=== PATIENT | male | born 1990 | race African-American/Black ===

== ENCOUNTER 2018-07-09 18:15 | Emergency (ER) | payer MEDICARE ==
[~2018-07-09] VITALS: Ht 177.8 cm; Wt 64.0 kg
[2018-07-09 18:27] VITALS: BP 120/75
== END 2018-07-09 21:28 | disposition left against medical advice (07) ==
LOC: ER 21:18
DX: N48.89 Other specified disorders of penis (principal); Z53.21 Procedure and treatment not carried out due to patient leaving prior to being seen by health care provider

== ENCOUNTER 2018-07-10 03:40 | Emergency (ER) | payer MEDICARE ==
[~2018-07-10] VITALS: Ht 175.3 cm; Wt 64.0 kg
[2018-07-10 07:35] VITALS: BP 95/65
== END 2018-07-10 07:53 | disposition home or self-care (01) ==
LOC: ER 03:40
DX: Z20.2 Contact with and (suspected) exposure to infections with a predominantly sexual mode of transmission (principal); F17.210 Nicotine dependence, cigarettes, uncomplicated
CPT/HCPCS: 99283

== ENCOUNTER 2018-07-11 13:18 | Emergency (ER) | payer MEDICARE ==
[~2018-07-11] VITALS: Ht 170.2 cm; Wt 65.0 kg
[2018-07-11 13:29] VITALS: BP 118/83
== END 2018-07-11 18:25 | disposition left against medical advice (07) ==
LOC: ER 13:18
DX: Z59.0 Homelessness (principal); F17.200 Nicotine dependence, unspecified, uncomplicated
CPT/HCPCS: 99283

== ENCOUNTER 2018-07-12 20:30 | Emergency (ER) | payer MEDICARE ==
[~2018-07-12] VITALS: Ht 175.3 cm; Wt 63.6 kg
[2018-07-12 22:04] LABS: BASOPHILS % 0.9 % (0.0-2.0); EOSINOPHILS % 3.6 % (0.0-5.0); HEMATOCRIT. 44.9 % (42.0-52.0); HEMOGLOBIN. 14.5 g/dL (14.0-18.0); LYMPHOCYTES % 28.2 % (20.0-50.0); MEAN CORPUSCULAR HEMOGLOBIN 27.3 pg (28.0-32.0); MEAN CORPUSCULAR VOLUME 84.3 fL (80.0-94.0); MONOCYTES % 9.2 % (2.0-8.0); NEUTROPHILS % 58.1 % (40.0-76.0); PLATELET 171 x1000/uL (130-400); RED BLOOD CELL COUNT 5.32 mill/uL (4.7-6.1); RED CELL DISTRIBUTION WIDTH 14.4 % (11.6-14.6)
[2018-07-12 22:08] LABS: CHLORIDE 109 mEq/L (98-107)
[2018-07-12 22:11] LABS: CLARITY URINE CLEAR (CLEAR); COLOR URINE YELLOW (YELLOW); KETONES URINE TRACE (NEGATIVE); LEUKOCYTE ESTERASE URINE NEGATIVE (NEGATIVE); NITRITE URINE NEGATIVE (NEGATIVE); OCCULT BLOOD URINE NEGATIVE (NEGATIVE); PH URINE 5.5 (4.5-8.0); PROTEIN URINE NEGATIVE (NEGATIVE); SPECIFIC GRAVITY URINE 1.022 (1.005-1.030); UROBILINOGEN URINE 0.2 E.U./dL (0.2-1.0)
[2018-07-12 22:13] LABS: ETHANOL BLOOD < 10 mg/dL
[2018-07-12 22:22] LABS: METHADONE URINE SCREEN NEGATIVE (NEGATIVE); OPIATES URINE SCREEN NEGATIVE (NEGATIVE)
[2018-07-12 22:23] LABS: *AMPHETAMINES SCREEN URINE NEGATIVE (NEGATIVE); *BARBITURATES SCREEN URINE NEGATIVE (NEGATIVE); *BENZODIAZEPINES SCREEN URINE NEGATIVE (NEGATIVE); *COCAINE SCREEN URINE NEGATIVE (NEGATIVE); CANNABINOID URINE SCREEN PRESUMTIVE POSITIVE (NEGATIVE); PHENCYCLIDINE URINE SCREEN NEGATIVE (NEGATIVE)
[2018-07-13 18:58] VITALS: BP 108/72
== END 2018-07-13 19:31 | disposition home or self-care (01) ==
LOC: ER 20:30
DX: R45.851 Suicidal ideations (principal); F20.9 Schizophrenia, unspecified; F17.200 Nicotine dependence, unspecified, uncomplicated
CPT/HCPCS: 36415; 80305; 80307; 80320; 80329; 84443; 99284; G0480

== ENCOUNTER 2018-07-14 18:54 | Emergency (ER) | payer MEDICARE ==
[~2018-07-14] VITALS: Ht 175.3 cm; Wt 63.0 kg
[2018-07-14 20:44] VITALS: BP 106/62
== END 2018-07-14 20:53 | disposition home or self-care (01) ==
LOC: ER 18:54
DX: F43.20 Adjustment disorder, unspecified (principal); F32.9 Major depressive disorder, single episode, unspecified; F20.9 Schizophrenia, unspecified; F17.210 Nicotine dependence, cigarettes, uncomplicated; Z71.6 Tobacco abuse counseling
CPT/HCPCS: 99281; 99284; 99406

== ENCOUNTER 2018-07-15 08:20 | Emergency (ER) | payer MEDICARE ==
[~2018-07-15] VITALS: Ht 167.6 cm; Wt 60.0 kg
[2018-07-15 08:56] VITALS: BP 134/78
== END 2018-07-15 11:08 | disposition home or self-care (01) ==
LOC: ER 08:20
DX: R68.89 Other general symptoms and signs (principal); F32.9 Major depressive disorder, single episode, unspecified; F20.9 Schizophrenia, unspecified
CPT/HCPCS: 99283

== ENCOUNTER 2018-07-15 22:11 | Emergency (ER) | payer MEDICARE ==
[~2018-07-15] VITALS: Ht 175.3 cm; Wt 64.0 kg
[2018-07-16 02:31] LABS: BASOPHILS % 1.1 % (0.0-2.0); EOSINOPHILS % 3.9 % (0.0-5.0); HEMATOCRIT. 42.7 % (42.0-52.0); HEMOGLOBIN. 14.3 g/dL (14.0-18.0); LYMPHOCYTES % 31.8 % (20.0-50.0); MEAN CORPUSCULAR HEMOGLOBIN 28.4 pg (28.0-32.0); MEAN CORPUSCULAR VOLUME 84.5 fL (80.0-94.0); MEAN PLATELET VOLUME 10.1 fl (7.4-10.4); MONOCYTES % 10.9 % (2.0-8.0); NEUTROPHILS % 52.3 % (40.0-76.0); PLATELET 146 x1000/uL (130-400); RED BLOOD CELL COUNT 5.05 mill/uL (4.7-6.1); RED CELL DISTRIBUTION WIDTH 14.4 % (11.6-14.6)
[2018-07-16 02:32] LABS: CHLORIDE 108 mEq/L (98-107)
[2018-07-16 02:35] LABS: CLARITY URINE CLEAR (CLEAR); COLOR URINE YELLOW (YELLOW); KETONES URINE NEGATIVE (NEGATIVE); LEUKOCYTE ESTERASE URINE NEGATIVE (NEGATIVE); NITRITE URINE NEGATIVE (NEGATIVE); OCCULT BLOOD URINE NEGATIVE (NEGATIVE); PH URINE 5.5 (4.5-8.0); PROTEIN URINE NEGATIVE (NEGATIVE); SPECIFIC GRAVITY URINE 1.021 (1.005-1.030); UROBILINOGEN URINE 0.2 E.U./dL (0.2-1.0)
[2018-07-16 02:37] LABS: ETHANOL BLOOD < 10 mg/dL
[2018-07-16 02:50] LABS: *AMPHETAMINES SCREEN URINE NEGATIVE (NEGATIVE); *BARBITURATES SCREEN URINE NEGATIVE (NEGATIVE)
[2018-07-16 02:51] LABS: *BENZODIAZEPINES SCREEN URINE NEGATIVE (NEGATIVE); *COCAINE SCREEN URINE NEGATIVE (NEGATIVE); METHADONE URINE SCREEN NEGATIVE (NEGATIVE); OPIATES URINE SCREEN NEGATIVE (NEGATIVE)
[2018-07-16 02:52] LABS: CANNABINOID URINE SCREEN PRESUMTIVE POSITIVE (NEGATIVE); PHENCYCLIDINE URINE SCREEN NEGATIVE (NEGATIVE)
[2018-07-16 05:21] VITALS: BP 110/66
== END 2018-07-16 05:26 | disposition home or self-care (01) ==
LOC: ER 22:11
DX: Z04.89 Encounter for examination and observation for other specified reasons (principal); F32.9 Major depressive disorder, single episode, unspecified; F20.9 Schizophrenia, unspecified; Z59.0 Homelessness
CPT/HCPCS: 36415; 80305; 80307; 80320; 80329; 99283; G0480